=== PATIENT | male | born 1965 | race Caucasian/White ===

== ENCOUNTER 2023-04-25 02:33 | Emergency (ER) | payer OTHER ==
[2023-04-25] MEDS ORDERED: Sodium Chloride 0.9% 10 ML Syringe FLUSH PRN (02:53)
[2023-04-25 03:06] LABS: BASOPHILS ABSOLUTE AUTO 0.04 K/uL (0.00-0.10); BASOPHILS PERCENT AUTO 0.6 % (0.1-1.3); EOSINOPHILS ABSOLUTE AUTO 0.49 K/uL (0.00-0.40); EOSINOPHILS PERCENT AUTO 7.7 % (0.0-5.4); HEMATOCRIT 44.1 % (38.4-49.7); HEMOGLOBIN 15.4 g/dL (12.9-16.9); IMMATURE GRAN ABSOLUTE AUTO 0.01 K/uL (0.00-0.23); IMMATURE GRAN PERCENT AUTO 0.2 % (0.0-0.7); LYMPHOCYTES ABSOLUTE AUTO 1.83 K/uL (0.8-3.3); LYMPHOCYTES PERCENT AUTO 28.9 % (11.4-47.7); MEAN CORPUSCULAR HEMOGLOBIN 31.4 pg (31.6-35.5); MEAN CORPUSCULAR HGB CONC 34.9 g/dL (31.6-35.5); MEAN CORPUSCULAR VOLUME 89.8 fL (81.4-99.0); NEUTROPHILS ABSOLUTE AUTO 3.27 K/uL (1.0-7.6); NEUTROPHILS PERCENT AUTO 51.6 % (40.0-78.1); PLATELET COUNT,PLT 167 K/uL (130-375); RED BLOOD CELL COUNT 4.91 M/uL (4.14-5.76); WHITE BLOOD CELL COUNT,WBC 6.3 K/uL (3.2-11.0)
[2023-04-25] MEDS: Aspirin 81 MG Tab.Chew PO ONE ×2 (03:08→04:42)
[2023-04-25] MEDS ORDERED: Aspirin 81 MG Tab.Chew PO ONE (03:12)
[2023-04-25 03:23] LABS: PROTHROMBIN TIME 10.2 sec (9.2-10.6); PTT,PARTIAL THROMBOPLSTIN TIME 19.4 sec (21.8-27.3)
[2023-04-25 03:27] LABS: ANION GAP 6.5 mmol/L (5.0-14.0); CALCIUM 9.1 mg/dL (8.5-10.1); CREATININE 1.1 mg/dL (0.8-1.3); EST CRCL DRUG DOSING (CG) 88.77 mL/min; POTASSIUM,K 4.1 mmol/L (3.6-5.2); TROPONIN I HIGH SENSITIVITY 4.7 pg/mL (<=60.3)
== END 2023-04-25 06:45 | disposition home or self-care (01) ==
LOC: JP.ED 02:33
DX: R07.89 Other chest pain (principal)
CPT/HCPCS: 36415; 71045; 80048; 84484; 85025; 85379; 85610; 85730; 93005; 99285; A9270; 93010; 99283